=== PATIENT | female | born 1935 | race Native Hawaiian/Other Pacific Islander ===

== ENCOUNTER 2018-05-18 16:19 | Emergency (ER) | payer OTHER ==
[~2018-05-18] VITALS: Ht 139.7 cm; Wt 79.4 kg
[~2018-05-18 16:19] MED LIST: AMANTADINE100 MG PO; APAP325 MG PO; DIVA250T2 PO; DIVA500T2 PO; DONE5TAB PO; GERI-MUCIL68 % PO; HALO5INJ3 IM; INVEGA SUST156 MG/ML IM; LORA1TAB17 PO; LORA2INJ21 IM; MAPAP325 MG PO; MEMA10TA2 PO; MIRALAX3350 N1 PO; NAMZARIC 28-101 CAP PO; OMEPRAZOLE20.6 MGDR PO; OXYGEN NAS; PEPCID20 MG PO; RISP50IN IM; WATEINJ6 INJ; ZIPR20IN IM; ZIPR80CA PO
[2018-05-18 17:05] LABS: PLATELET COUNT 179 K/uL (152-353)
[2018-05-18 17:11] LABS: POTASSIUM 4.5 mmol/L (3.6-5.2)
[2018-05-18 18:00] VITALS: BP 118/59; TEMP 97.8
[2018-05-18] MEDS ORDERED: BENZONATATE200 MG PO (22:04)
[2018-05-18] MEDS ORDERED: VITAMIN B-12 IM (22:37)
[2018-05-18] MEDS ORDERED: FIBER LAXATIV0.52 GM PO (22:41)
[2018-05-18] MEDS ORDERED: PANTOPRAZOLE 40MG TA PO (22:45)
[2018-05-18] MEDS ORDERED: MULTIVITAMIN AD1 TAB PO (22:47)
[2018-05-18] MEDS ORDERED: NOVOLOG100 UNIT/M SC (22:52)
== END 2018-05-18 18:00 | disposition other institution (70) ==
LOC: ED 16:19
PROVIDERS: Family Medicine
DX: F20.89 Other schizophrenia (principal); F60.3 Borderline personality disorder; Z04.6 Encounter for general psychiatric examination, requested by authority
CPT/HCPCS: 36415; 80053; 85027; 93005; 99285